=== PATIENT | male | born 1940 | race Caucasian/White ===

== ENCOUNTER 2020-04-13 16:03 | Emergency (ER) | payer MEDICARE, SELFPAY ==
[2020-04-13 16:21] VITALS: BP 192/94; PULSE 69; RESP 16; TEMP 37.1; O2SAT 99
--- NOTE | 2020-04-13 16:40 | ED.EXTPRO ---
HPI - Extremity Problem General Chief complaint: Wound/Laceration Stated complaint: left leg pain Time Seen by Provider: 04/13/20 16:44 Source: patient and RN notes reviewed Mode of arrival: ambulatory Limitations: no limitations History of Present Illness HPI Narrative: 79-year-old male presents with concern for left leg redness, swelling, tenderness. Reports 6 days ago he fell breaking the skin on the front of his left leg, reports the following day redness and swelling started and has continued to worsen. He denies any fever, malaise, calf pain, shortness of breath. Reports a scrape on his right leg without redness and swelling. MD Complaint: extremity swelling Related Data Home Medications Medication Instructions Recorded Confirmed allopurinol 300 mg DAILY 04/13/20 04/13/20 felodipine 5 mg PO DAILY 04/13/20 04/13/20 furosemide 20 mg DAILY 04/13/20 04/13/20 tamsulosin 0.4 mg PO DAILY 04/13/20 04/13/20 Allergies Allergy/AdvReac Type Severity Reaction Status Date / Time No Known Allergies Allergy Verified 04/13/20 16:55 Review of Systems Review of Systems: Narrative: CONSTITUTIONAL: Denies malaise, chills, sweats, or fever. CARDIOVASCULAR: Denies chest pain, palpitations RESPIRATORY: Denies cough or dyspnea. GASTROINTESTINAL: Denies abdominal pain, nausea, vomiting, diarrhea SKIN: Reports left anterior leg and foot redness, swelling, tenderness MUSCULOSKELETAL: Denies myalgia. NEUROLOGIC: Denies numbness, weakness. All systems reviewed & are unremarkable except as noted in HPI and below PMFSH Social History Social History Smoking status: Never smoker Alcohol intake: current Gender identity (if verbalized by the patient): Male Comments At time of signature, agree with nursing past medical, surgical, social and family history. There is no relevant family history pertinent to the presenting complaint Exam Narrative: Exam Narrative: GENERAL: Well-appearing, well-nourished, and in no acute distress. HEAD: Normocephalic, atraumatic. EYES: PERRLA, conjunctivae clear NECK: Supple. CHEST: Speaks in full sentences. No respiratory distress. HEART: Regular rate and rhythm. Normal and equal peripheral pulses. EXTREMITIES: Left leg, foot, digits has normal strength and sensation, normal range of motion. 5/5 strength with knee and digit flexion and extension. Normal sensation with sensitivity to light touch and pain. No skin tenting, no ecchymosis, no obvious deformity, alignment normal, generalized anterior tenderness, nearby joints and structures intact. Distal pulses palpable and equal bilaterally, skin warm, dry, pink. Capillary refill less than 3 seconds. No posterior or calf redness, tenderness, erythema SKIN: Warm, dry, no rash. Anterior left lower leg erythematous, edematous, warm, tender. Left foot mildly erythematous and edematous NEURO: Alert and oriented x3. PSYCH: Normal mood and affect Course Course Emergency Course: Patient is aware of diagnosis, understands and agrees to treatment plan. Anticipatory guidance given. Patient agrees to follow-up as directed and is aware of reasons to seek care at the emergency department. Portions of this record may have been created with voice recognition software Vital Signs Vital signs: Vital Signs Temperature 98.8 F 04/13/20 16:21 Pulse Rate 69 04/13/20 16:21 Respiratory Rate 16 04/13/20 16:21 Blood Pressure 192/94 H 04/13/20 16:21 Pulse Oximetry 99 04/13/20 16:21 Temperature 98.8 F 04/13/20 16:21 Pulse Rate 69 04/13/20 16:21 Respiratory Rate 16 04/13/20 16:21 Blood Pressure 192/94 H 04/13/20 16:21 Pulse Oximetry 99 04/13/20 16:21 Reviewed. Patient has history of hypertension MDM - Extremity (Nontraumatic) MDM Narrative Medical decision making narrative: Exam findings show no acute concerns or changes; patient is non-toxic appearing and is in no distress. Patient is appropriate for outpatient treatment and follow-up.
== END 2020-04-13 17:07 | disposition home or self-care (01) ==
PROVIDERS: Emergency Provider Nurse Practitioner
DX: L03.116 Cellulitis of left lower limb (principal); I10 Essential (primary) hypertension; N40.0 Benign prostatic hyperplasia without lower urinary tract symptoms; M19.90 Unspecified osteoarthritis, unspecified site; M10.9 Gout, unspecified
CPT/HCPCS: 99213; G0463

== ENCOUNTER 2020-04-23 13:30 | Emergency (ER) | payer MEDICARE, SELFPAY ==
[2020-04-23 13:50] VITALS: BP 145/64; PULSE 76; RESP 16; TEMP 37.1; O2SAT 98
--- NOTE | 2020-04-23 13:56 | ED.EXTPRO ---
HPI - Extremity Problem General Chief complaint: Extremity Problem,Nontraumatic Stated complaint: left leg pain Time Seen by Provider: 04/23/20 13:57 Source: patient Mode of arrival: ambulatory Limitations: no limitations History of Present Illness HPI Narrative: Omari Fletcher is a 79 yo male with a PMH of gout, BPH, HTN, who comes to express care for additional antibiotics from a fall resulting abrasion that was treated here almost 10 days ago. Anterior leg is healing well but needs a few more days of antibiotics. Patient said healing is going well and that he is continue to follow the directions given by the [facility] that was here that day Related Data Home Medications Medication Instructions Recorded Confirmed allopurinol 300 mg DAILY 04/13/20 04/23/20 felodipine 5 mg PO DAILY 04/13/20 04/23/20 furosemide 20 mg DAILY 04/13/20 04/23/20 tamsulosin 0.4 mg PO DAILY 04/13/20 04/23/20 Allergies Allergy/AdvReac Type Severity Reaction Status Date / Time No Known Allergies Allergy Verified 04/23/20 13:36 Review of Systems Review of Systems: Narrative: CONSTITUTIONAL: Denies fever, chills, sweats. EYES: Denies visual changes, redness, discharge. ENT: Denies rhinorrhea, congestion, sore throat, otalgia. CARDIOVASCULAR: Denies chest pain, palpitations, edema. RESPIRATORY: Denies dyspnea, wheezing, cough GASTROINTESTINAL: Denies abdominal pain, nausea, vomiting, diarrhea. GENITOURINARY: Denies dysuria, hematuria, abnormal discharge SKIN: Denies rash or itching. Healing abrasion to the left tibia NEUROLOGIC: Denies numbness, or focal weakness. PSYCHIATRIC: Denies anxiety or depression. PMFSH Family History Family History Other Hypertension Social History Social History Smoking status: Never smoker Alcohol intake: current Gender identity (if verbalized by the patient): Male Comments At time of signature, I agree with nursing past medical, surgical, social and family history. There is no relevant family history pertinent to the presenting complaint. Exam Narrative: Exam Narrative: GENERAL: This is a well-nourished, well-developed patient, in no distress. HEAD: normocephalic, atraumatic. EYES: Sclera clear/white. Vision is grossly intact. EARS: External ears normal, . Hearing grossly intact. NOSE: External nose normal without nasal discharge, nares without redness, no rhinorrhea. THROAT: Mucous membranes moist, NECK: Neck supple, CARDIOVASCULAR: Regular rate and rhythm without murmurs, gallops, or rubs. RESPIRATORY: Clear to auscultation. Breath sounds equal bilaterally. No wheezes, rales, or rhonchi. GASTROINTESTINAL: Abdomen soft, SKIN: warm, intact with no suspicious lesions or rash, good texture and turgor. Left tibia, healing by secondary intention, mild redness and an 6 x 6 area with a center scab NEURO: awake, alert, and oriented to person, place and time. There were no obvious focal neurologic abnormalities. Steady gait EXTREMITIES: Normal range of motion. BACK: Nontender without deformity Course Course Emergency Course: Renewed Keflex for 1 more week, 4 times daily Follow-up with primary care physician Vital Signs Vital signs: Vital Signs Temperature 98.8 F 04/23/20 13:50 Pulse Rate 76 04/23/20 13:50 Respiratory Rate 16 04/23/20 13:50 Blood Pressure 145/64 H 04/23/20 13:50 Pulse Oximetry 98 04/23/20 13:50 Temperature 98.8 F 04/23/20 13:50 Pulse Rate 76 04/23/20 13:50 Respiratory Rate 16 04/23/20 13:50 Blood Pressure 145/64 H 04/23/20 13:50 Pulse Oximetry 98 04/23/20 13:50 MDM - Extremity (Nontraumatic) Differential Diagnosis Differential diagnosis: Likely cellulitis and other (Abrasion versus infection) Discharge Plan Discharge Clinical Impression: Cellulitis Qualifiers: Site of cellulitis: extremity Site of cellulitis of extre
== END 2020-04-23 14:07 | disposition home or self-care (01) ==
PROVIDERS: Emergency Provider Nurse Practitioner; PCP Internal Medicine
DX: L03.116 Cellulitis of left lower limb (principal); I10 Essential (primary) hypertension; N40.0 Benign prostatic hyperplasia without lower urinary tract symptoms; M10.9 Gout, unspecified; J45.909 Unspecified asthma, uncomplicated
CPT/HCPCS: 99213; G0463

== ENCOUNTER 2020-04-30 13:07 | Emergency (ER) | payer MEDICARE, SELFPAY ==
--- NOTE | 2020-04-30 13:12 | ED.LOWEXIN ---
HPI - Extremity Injury (Lower) General Chief Complaint: Extremity Problem,Nontraumatic Stated Complaint: Leg injury Time Seen by Provider: 04/30/20 13:28 Source: patient and RN notes reviewed Mode of arrival: ambulatory Limitations: no limitations History of Present Illness HPI Narrative: 79-year-old male presents for wound check. Reports he was being treated for cellulitis, he will finish his antibiotic today, wants to be sure that the cellulitis is healed. He denies any pain, redness, swelling. Reports previous redness and swelling has improved. Reports he is taken antibiotics as directed. MD complaint: other (Cellulitis follow-up) Related Data Home Medications Medication Instructions Recorded Confirmed allopurinol 300 mg DAILY 04/13/20 04/23/20 felodipine 5 mg PO DAILY 04/13/20 04/23/20 furosemide 20 mg DAILY 04/13/20 04/23/20 tamsulosin 0.4 mg PO DAILY 04/13/20 04/23/20 albuterol sulfate 04/30/20 testosterone cypionate mg 04/30/20 Allergies Allergy/AdvReac Type Severity Reaction Status Date / Time No Known Allergies Allergy Verified 04/23/20 13:36 Review of Systems Review of Systems: Narrative: CONSTITUTIONAL: Denies malaise, chills, sweats, or fever. CARDIOVASCULAR: Denies chest pain, palpitations, or edema. RESPIRATORY: Denies cough or dyspnea. SKIN: Denies rash or itching. MUSCULOSKELETAL: Denies myalgia. NEUROLOGIC: Denies numbness, weakness All systems reviewed & are unremarkable except as noted in HPI and below PMFSH Social History Social History Smoking status: Never smoker Alcohol intake: current Gender identity (if verbalized by the patient): Male Comments At time of signature, agree with nursing past medical, surgical, social and family history. There is no relevant family history pertinent to the presenting complaint Exam Narrative: Exam Narrative: GENERAL: Well-appearing, well-nourished, and in no acute distress. HEAD: Normocephalic, atraumatic. EYES: PERRLA, conjunctivae clear NECK: Supple. CHEST: Speaks in full sentences. No respiratory distress. HEART: Regular rate and rhythm. Normal and equal peripheral pulses. EXTREMITIES: Left lower leg has normal strength and sensation, no edema, normal range of motion. 5/5 strength with ankle flexion and extension. Normal sensation with sensitivity to light touch and pain. Nono skin tenting, no devitalized tissue or atrophy, no trophic changes, no ecchymosis, no obvious deformity, alignment normal, no point tenderness, nearby joints and structures intact. Distal pulses palpable and equal bilaterally, skin warm, dry, pink. Capillary refill less than 3 seconds. SKIN: Warm, dry, no rash. Some flaking skin noted to the anterior left lower leg, with large center scab. No erythema, induration, edema, tenderness noted NEURO: Alert and oriented x3. PSYCH: Normal mood and affect Course Course Emergency Course: Patient is aware of diagnosis, understands and agrees to treatment plan. Anticipatory guidance given. Patient agrees to follow-up as directed and is aware of reasons to seek care at the emergency department. Portions of this record may have been created with voice recognition software Vital Signs Vital signs: Vital Signs Temperature 98.8 F 04/30/20 13:20 Pulse Rate 81 04/30/20 13:20 Respiratory Rate 20 04/30/20 13:20 Blood Pressure 162/64 H 04/30/20 13:20 Pulse Oximetry 98 04/30/20 13:20 Temperature 98.8 F 04/30/20 13:20 Pulse Rate 81 04/30/20 13:20 Respiratory Rate 20 04/30/20 13:20 Blood Pressure 162/64 H 04/30/20 13:20 Pulse Oximetry 98 04/30/20 13:20 Reviewed. Patient has history of hypertension MDM - Extremity Injury (Lower) MDM Narrative Medical decision making narrative: Exam findings show no acute concerns or changes; patient is non-toxic appearing and is in no distress. Patient is appropriate for outpatient treatment and follow-up. Crit
[2020-04-30 13:20] VITALS: BP 162/64; PULSE 81; RESP 20; TEMP 37.1; O2SAT 98
== END 2020-04-30 13:39 | disposition home or self-care (01) ==
PROVIDERS: Emergency Provider Nurse Practitioner
DX: Z48.00 Encounter for change or removal of nonsurgical wound dressing (principal); I10 Essential (primary) hypertension; J45.909 Unspecified asthma, uncomplicated; N40.0 Benign prostatic hyperplasia without lower urinary tract symptoms; M19.90 Unspecified osteoarthritis, unspecified site; M10.9 Gout, unspecified
CPT/HCPCS: 99212; G0463

== ENCOUNTER 2020-09-25 08:24 | Emergency (ER) | payer MEDICARE, SELFPAY ==
[2020-09-25 08:34] VITALS: BP 191/86; PULSE 84; RESP 20; TEMP 36.4; O2SAT 99
--- NOTE | 2020-09-25 09:25 | ED.GENADULT ---
HPI - General Adult General Chief complaint: Unspecified Stated complaint: Erection > 4 hours Time Seen by Provider: 09/25/20 09:20 Source: patient Mode of arrival: ambulatory Limitations: no limitations History of Present Illness HPI narrative: 80-year-old male He is followed by a urologist at [facility] He does intercavernous injections for erectile dysfunction Had a persistent erection after use last night Had plans to come in then but fell asleep Continued with discomfort this morning and presented to the ER Since arriving, the condition resolved itself after being seen by nursing and he was back to normal before I saw him and reporting no further discomfort Related Data Home Medications Medication Instructions Recorded Confirmed allopurinol 300 mg DAILY 04/13/20 04/23/20 felodipine 5 mg PO DAILY 04/13/20 04/23/20 furosemide 20 mg DAILY 04/13/20 04/23/20 tamsulosin 0.4 mg PO DAILY 04/13/20 04/23/20 albuterol sulfate 04/30/20 testosterone cypionate mg 04/30/20 Allergies Allergy/AdvReac Type Severity Reaction Status Date / Time No Known Allergies Allergy Verified 09/25/20 08:37 Review of Systems Review of Systems: All systems reviewed & are unremarkable except as noted in HPI and below Respiratory: Respiratory: Denies cough and Denies dyspnea Gastrointestinal: Gastrointestinal: Denies abdominal pain, Denies nausea and Denies vomiting Genitourinary: Genitourinary: Reports no additional male genitourinary complaints, Denies hematuria, Reports erectile dysfunction, Denies dysuria and Denies urinary frequency PMFSH Family History Family History Other Hypertension Social History Social History Smoking status: Never smoker Alcohol intake: current Gender identity (if verbalized by the patient): Male Exam Const: General: no acute distress Orientation/consciousness: patient oriented x3 (alert) Eyes: Conjunctivae: conjunctivae normal Sclera: sclerae normal Resp: Effort & Inspection: normal respiratory effort : Penis: Yes normal penis, No priapism and No phimosis Neuro: General: patient oriented x3 (alert) Cranial nerves: Yes facial symmetry Speech: normal speech Course Course Emergency Course: Priapism resolved itself and did not return Vital Signs Vital signs: Vital Signs Temperature 36.4 C L 09/25/20 08:34 Pulse Rate 84 09/25/20 08:34 Respiratory Rate 20 09/25/20 08:34 Blood Pressure 191/86 H 09/25/20 08:34 Pulse Oximetry 99 09/25/20 08:34 Temperature 36.4 C L 09/25/20 08:34 Pulse Rate 84 09/25/20 08:34 Respiratory Rate 20 09/25/20 08:34 Blood Pressure 191/86 H 09/25/20 08:34 Pulse Oximetry 99 09/25/20 08:34 Medical Decision Making Vital Signs Vital Signs: Vital Signs Temperature 36.4 C L 09/25/20 08:34 Pulse Rate 84 09/25/20 08:34 Respiratory Rate 20 09/25/20 08:34 Blood Pressure 191/86 H 09/25/20 08:34 Pulse Oximetry 99 09/25/20 08:34 Temperature 36.4 C L 09/25/20 08:34 Pulse Rate 84 09/25/20 08:34 Respiratory Rate 20 09/25/20 08:34 Blood Pressure 191/86 H 09/25/20 08:34 Pulse Oximetry 99 09/25/20 08:34 Discharge Plan Discharge Clinical Impression: Priapism, drug-induced Patient Disposition: Home, Self-Care Condition: Improved Instructions: Priapism (ED) Additional Instructions: Please discuss with your urologist before doing any more intracavernous injections Be sure to take your blood pressure medicines when you return home Prescriptions: No Action tamsulosin 0.4 mg capsule 0.4 mg PO DAILY RF: 0 felodipine 5 mg tablet extended release 24 hr 5 mg PO DAILY RF: 0 allopurinol 300 mg tablet 300 mg DAILY RF: 0 furosemide 20 mg tablet 20 mg DAILY RF: 0 cephalexin 500 mg capsule 500 mg PO Q6H 7 Days Qty: 28 RF: 0 testosterone cypiona
[2020-09-25 09:38] VITALS: BP 175/87; PULSE 74; RESP 16; O2SAT 99
== END 2020-09-25 09:36 | disposition home or self-care (01) ==
PROVIDERS: Emergency Provider Emergency Medicine; PCP Internal Medicine
DX: N48.33 Priapism, drug-induced (principal)
CPT/HCPCS: 99281